=== PATIENT | female | born 1975 | race Caucasian/White ===

== ENCOUNTER 2017-08-12 05:30 | Inpatient (IN) | payer OTHER ==
[~2017-08-12] VITALS: Ht 185.4 cm; Wt 132.1 kg
[2017-08-12] MEDS ORDERED: FAMOTIDINE 20 MG TABLET ONE (05:55)
[2017-08-12] MEDS ORDERED: ONDANSETRON ODT 4 MG ONE (05:56)
[2017-08-12] MEDS ORDERED: HYDROmorphone 1 MG/ML, 1ML ONE ×2 (05:56→07:12)
[2017-08-12] MEDS ORDERED: ONDANSETRON 2MG/ML, 2ML ONE (05:58)
[2017-08-12] MEDS ORDERED: ONDANSETRON 2MG/ML, 2ML IVPush ONE (06:00)
[2017-08-12] MEDS ORDERED: SODIUM CHLORIDE FLUSH 10ML SYR IVF ONE (06:00)
[2017-08-12] MEDS ORDERED: FAMOTIDINE 20 MG/2 ML IVP ONE (06:00)
[2017-08-12] MEDS ORDERED: ONDANSETRON ODT 4 MG PO ONE (06:00)
[2017-08-12 06:14] LABS: BASOPHILS # (AUTO) 0.05 x10^3/uL (0-0.1); BASOPHILS % (AUTO) 1 % (0-1); EOSINOPHILS # (AUTO) 0.13 x10^3/uL (0-0.4); EOSINOPHILS % (AUTO) 2 % (1-7); LYMPHOCYTES # (AUTO) 1.37 x10^3/uL (1-3.4); LYMPHOCYTES % (AUTO) 17 % (22-44); MD NO; MEAN CORPUSCULAR HEMOGLOBIN 28.6 pg (27.0-34.8); MEAN CORPUSCULAR HGB CONC 33.3 g/dL (32.4-35.8); MEAN CORPUSCULAR VOLUME 85.9 fL (80-100); MEAN PLATELET VOLUME 9.1 fL (7.4-10.4); MONOCYTES # (AUTO) 0.33 x10^3/uL (0.2-0.8); MONOCYTES % (AUTO) 4 % (2-9); NEUTROPHILS # (AUTO) 6.05 x10^3/uL (1.8-6.8); NEUTROPHILS % (AUTO) 76 % (42-75); PLATELET COUNT 286 x10^3/uL (130-400); RED BLOOD COUNT 5.35 x10^6/uL (3.82-5.3)
[2017-08-12] MEDS: HYDROmorphone 1 MG/ML, 1ML IVPush PRN ×2 (06:19→07:14)
[2017-08-12 06:24] LABS: MICROSCOPIC NOT IND
[2017-08-12 06:26] LABS: CULTURE INDICATED? NO
[2017-08-12 06:26] LABS: ALANINE AMINOTRANSFERASE 28 U/L (12-78); ALBUMIN 4.1 g/dL (3.4-5.0); ANION GAP 6 mmol/L (5-15); CALCIUM 9.1 mg/dL (8.5-10.1); CHLORIDE 106 mmol/L (98-107); CREATININE 0.77 mg/dL (0.55-1.02)
[2017-08-12 06:30] LABS: ALKALINE PHOSPHATASE 42 U/L (45-117); BILIRUBIN,TOTAL 0.4 mg/dL (0.2-1.0); TOTAL PROTEIN 7.8 g/dL (6.4-8.2)
[2017-08-12] MEDS ORDERED: ASPI1TAB87 PO (07:21)
[2017-08-12] MEDS ORDERED: SODIUM CHLORIDE 0.9% 1,000 ML IV ONE (07:54)
[2017-08-12] MEDS ORDERED: HYDROmorphone 1 MG/ML, 1ML IVPush PRN (08:00)
[2017-08-12] MEDS ORDERED: SODIUM CHLORIDE FLUSH 10ML SYR IVF PRN (08:00)
[2017-08-12] MEDS ORDERED: ONDANSETRON 2MG/ML, 2ML IVPush PRN ×2 (08:00→15:00)
[2017-08-12] MEDS ORDERED: HYDROmorphone 2 MG/ML, 1ML ONE (11:21)
[2017-08-12 13:01] VITALS: BP 109/69
[2017-08-12] MEDS ORDERED: BUPIVACAINE/PF 0.25% ONE (14:09)
[2017-08-12] MEDS ORDERED: EPINEPHRINE 1 MG/ML, 1ML ONE (14:09)
[2017-08-12] MEDS ORDERED: FENTANYL PF 250 MCG/5ML ONE (14:34)
[2017-08-12] MEDS ORDERED: MIDAZOLAM 1 MG/ML, 2ML ONE (14:53)
[2017-08-12] MEDS ORDERED: hydrALAzine 20 MG/ML, 1ML IV PRN ×2 (15:00→18:00)
[2017-08-12] MEDS ORDERED: OXYcodone 5 MG/5 ML ORAL.SOL UDC PO PRN (15:00)
[2017-08-12] MEDS ORDERED: LABETALOL 5MG/ML, 20ML IV PRN (15:00)
[2017-08-12] MEDS ORDERED: ACETAMINOPHEN 325 MG TABLET PO PRN ×2 (15:00→18:00)
[2017-08-12] MEDS ORDERED: FENTANYL PF 100 MCG/2ML ONE (16:28)
[2017-08-12] MEDS ORDERED: OXYcodone 5 MG/5 ML ORAL.SOL UDC ONE (16:28)
[2017-08-12] MEDS ORDERED: MORPHINE SULFATE 4 MG/ML, 1ML ONE ×2 (16:28→16:47)
[2017-08-12] MEDS: FENTANYL PF 100 MCG/2ML IV PRN ×2 (16:31→16:42)
[2017-08-12] MEDS: morphine SULFATE 10 MG/ML, 1ML IV PRN ×4 (16:35→16:57)
[2017-08-12] MEDS ORDERED: ACETAMINOPHEN 650 MG/20.3 ML UDC ONE (17:21)
[2017-08-12] MEDS ORDERED: ACETAMINOPHEN 650 MG SUPP PR PRN (18:00)
[2017-08-12] MEDS ORDERED: ENOXAPARIN 40 MG/0.4 ML SQ SCH (18:00)
[2017-08-12] MEDS ORDERED: ENALAPRILAT 1.25 MG/ML, 2ML IV PRN (18:00)
[2017-08-12] MEDS ORDERED: DIPHENHYDRAMINE 50 MG/ML, 1ML IV PRN (18:00)
[2017-08-12] MEDS ORDERED: morphine SULFATE 10 MG/ML, 1ML IV PRN (18:00)
[2017-08-12] MEDS ORDERED: DIPHENHYDRAMINE 25 MG CAPSULE PO PRN (18:00)
[2017-08-12] MEDS ORDERED: ONDANSETRON 2MG/ML, 2ML IV PRN (18:30)
[2017-08-12] MEDS ORDERED: ONDANSETRON 4 MG TABLET PO PRN (18:30)
[2017-08-12 18:41] VITALS: BP 120/76
[2017-08-12] MEDS: KETOROLAC 30 MG/1 ML IV PRN (19:41)
[2017-08-12] MEDS: SODIUM CHLORIDE FLUSH 10ML SYR IVF SCH (20:43)
[2017-08-12] MEDS: LACTATED RINGERS 1,000 ML IV SCH (21:00)
[2017-08-13] MEDS: KETOROLAC 30 MG/1 ML IV PRN (03:04)
[2017-08-13 03:59] VITALS: BP 94/56
[2017-08-13] MEDS: LACTATED RINGERS 1,000 ML IV SCH ×2 (04:16→12:23)
[2017-08-13 07:29] VITALS: BP 97/59
[2017-08-13] MEDS: SODIUM CHLORIDE FLUSH 10ML SYR IVF SCH (09:00)
[2017-08-13] MEDS ORDERED: ONDANSETRON 2MG/ML, 2ML ONE (14:38)
[2017-08-13] MEDS ORDERED: DEXAMETHASONE 4 MG/ML, 1ML ONE (14:38)
[2017-08-13] MEDS ORDERED: KETOROLAC 30 MG/1 ML ONE (14:38)
[2017-08-13] MEDS ORDERED: PROPOFOL 10 MG/ML, 20ML ONE (14:38)
[2017-08-13] MEDS ORDERED: CEFOTETAN 2 GM ONE (14:38)
[2017-08-13] MEDS ORDERED: SUCCINYLCHOLINE 20 MG/ML, 10ML ONE (14:38)
[2017-08-13 14:46] VITALS: BP 97/60
[2017-08-13] MEDS ORDERED: HYDR-3240 PO (16:53)
[2017-08-13] MEDS ORDERED: DOCU-131 PO (16:54)
[2017-08-13] MEDS ORDERED: ONDA4TAB7 PO (16:54)
== END 2017-08-13 17:15 | disposition home or self-care (01) | DRG 419 ==
LOC: ED 07:50 → EDIP 07:54 → 4NOR 08:30
PROVIDERS: ADMIT Surgery; ATTEND Surgery
PROC: 0FT44ZZ Resection of Gallbladder, Percutaneous Endoscopic Approach (ICD-10-PCS; principal; 2017-08-12 14:30)
DX: K80.00 Calculus of gallbladder with acute cholecystitis without obstruction (principal); F12.90 Cannabis use, unspecified, uncomplicated; G89.29 Other chronic pain; K66.0 Peritoneal adhesions (postprocedural) (postinfection); M54.9 Dorsalgia, unspecified; Z90.710 Acquired absence of both cervix and uterus; K82.8 Other specified diseases of gallbladder
CPT/HCPCS: 36415; 76700; 80053; 81003; 83605; 83690; 84703; 85025; 88304; 93005; 96374; 96375; 96376; J0171; J1100; J1170; J1650; J1885; J2250; J2405; J2704; J3010; J3490; J0330; J1200; J2270; S0074